=== PATIENT | female | born 1970 | race Caucasian/White ===

== ENCOUNTER 2017-11-23 18:55 | Emergency (ER) | payer OTHER ==
[~2017-11-23] VITALS: Ht 172.7 cm; Wt 78.5 kg
[2017-11-23 19:32] VITALS: BP 122/72; Ht 172.7 cm; Wt 78.5 kg
== END 2017-11-23 22:49 | disposition home or self-care (01) ==
LOC: ED 18:55
DX: T23.101A Burn of first degree of right hand, unspecified site, initial encounter (principal); T23.102A Burn of first degree of left hand, unspecified site, initial encounter; X97.XXXA Assault by smoke, fire and flames, initial encounter; Y93.89 Activity, other specified; Y92.89 Other specified places as the place of occurrence of the external cause; Y99.8 Other external cause status
CPT/HCPCS: 90715; Q0162

== ENCOUNTER 2019-06-06 16:54 | Inpatient (IN) | payer OTHER ==
[~2019-06-06] VITALS: Ht 170.2 cm; Wt 76.3 kg
[2019-06-06 18:01] LABS: CALCIUM 8.3 mg/dL (8.5-10.1); CARBON DIOXIDE 27.3 mmol/L (21-32); CHLORIDE SERUM 101 mmol/L (98-107); CREATININE SERUM 0.9 mg/dL (0.6-1.0); GFR1 > 60 mL/min; GLUCOSE SERUM 139 mg/dL (74-106); POTASSIUM SERUM 4.5 mmol/L (3.5-5.1); SODIUM SERUM 134 mmol/L (136-145)
[2019-06-06 18:02] LABS: BASOPHIL % 0.1 % (0-2)
[2019-06-06 18:03] LABS: PLATELET COUNT 497 x10^3mcL (130-400); RED CELL DISTRIBUTION WIDTH 20.4 % (11.5-14.5)
[2019-06-06 18:07] LABS: ALBUMIN 3.5 g/dL (3.4-5.0); ALKALINE PHOSPHATASE 100 U/L (46-116); ALT/SGPT 20 U/L (14-59); AMYLASE 196 U/L (25-115); AST/SGOT 16 U/L (15-37); BILIRUBIN TOTAL 0.6 mg/dL (0.20-1.00); TOTAL PROTEIN, SERUM 7.5 g/dL (6.4-8.2)
[2019-06-06 18:19] LABS: rbc morphology (normal/abnorm) ABNORMAL (NORMAL)
[2019-06-06 18:23] LABS: LIPASE 2067 IU/L (73-393)
[2019-06-06 20:47] LABS: CHOLESTEROL/HDL RATIO 3.7
[2019-06-06 21:11] LABS: microscopic required? YES; urine erythrocyte 2+ (NEGATIVE)
[2019-06-06 21:30] LABS: AMPHETAMINE QUAL UR POSITIVE (See below)
[2019-06-06 22:06] VITALS: BP 108/57
[2019-06-06 22:12] VITALS: Ht 170.2 cm; Wt 76.3 kg
[2019-06-07 05:06] VITALS: BP 125/70
[2019-06-07 06:43] LABS: PLATELET COUNT 394 x10^3mcL (130-400)
[2019-06-07 06:56] LABS: CALCIUM 7.5 mg/dL (8.5-10.1); CARBON DIOXIDE 22.8 mmol/L (21-32); CHLORIDE SERUM 103 mmol/L (98-107); CREATININE SERUM 0.8 mg/dL (0.6-1.0); GFR1 > 60 mL/min; GLUCOSE SERUM 101 mg/dL (74-106); MAGNESIUM 1.3 mg/dL (1.8-2.4); PHOSPHOROUS 3.1 mg/dL (2.5-4.9); POTASSIUM SERUM 3.9 mmol/L (3.5-5.1); SODIUM SERUM 134 mmol/L (136-145)
[2019-06-07 07:39] VITALS: BP 120/71
[2019-06-07 07:54] LABS: RED CELL DISTRIBUTION WIDTH 20.7 % (11.5-14.5)
[2019-06-07 12:59] VITALS: BP 116/66
[2019-06-07 17:34] VITALS: BP 98/66
[2019-06-07 20:46] VITALS: BP 125/70
[2019-06-08 05:58] VITALS: BP 121/67
[2019-06-08 06:20] LABS: BASOPHIL % 0.2 % (0-2); PLATELET COUNT 373 x10^3mcL (130-400)
[2019-06-08 06:32] LABS: RED CELL DISTRIBUTION WIDTH 20.6 % (11.5-14.5)
[2019-06-08 06:59] LABS: CALCIUM 7.6 mg/dL (8.5-10.1); CARBON DIOXIDE 26.1 mmol/L (21-32); CHLORIDE SERUM 112 mmol/L (98-107); CREATININE SERUM 0.8 mg/dL (0.6-1.0); GFR1 > 60 mL/min; GLUCOSE SERUM 100 mg/dL (74-106); MAGNESIUM 1.7 mg/dL (1.8-2.4); PHOSPHOROUS 2.1 mg/dL (2.5-4.9); POTASSIUM SERUM 3.9 mmol/L (3.5-5.1); SODIUM SERUM 143 mmol/L (136-145)
[2019-06-08 08:10] VITALS: BP 116/59
[2019-06-08 10:10] VITALS: BP 116/59
== END 2019-06-08 10:44 | disposition home or self-care (01) | DRG 282 ==
LOC: ED 16:54 → MU 19:57
PROVIDERS: Emergency Medicine; Internal Medicine; ADMIT General Practice
DX: K85.90 Acute pancreatitis without necrosis or infection, unspecified (principal); E83.51 Hypocalcemia; R65.10 Systemic inflammatory response syndrome (SIRS) of non-infectious origin without acute organ dysfunction; E87.1 Hypo-osmolality and hyponatremia; F17.210 Nicotine dependence, cigarettes, uncomplicated; F12.10 Cannabis abuse, uncomplicated; Z68.25 Body mass index [BMI] 25.0-25.9, adult; Z80.1 Family history of malignant neoplasm of trachea, bronchus and lung; Z23 Encounter for immunization
CPT/HCPCS: 87046; 87046-59; 90658; 90732; G0378; J1885; J2405; J2765; J3490; J7030; J7060; Q0092